=== PATIENT | female | born 1955 | race Caucasian/White ===

== ENCOUNTER 2021-10-30 08:37 | Day surgery (SDC) | payer MEDICARE ==
[~2021-10-30] VITALS: Ht 172.7 cm; Wt 59.3 kg
[2021-10-30] VITALS (12 sets, daily range): BP systolic 110–147; BP diastolic 62–86
[2021-10-30] MEDS ORDERED: LIDOcaine 1% 30ml preserv. free vial IJ STA ×2 (08:39→09:06)
[2021-10-30] MEDS ORDERED: IBUP-24 PO (09:11)
[2021-10-30] MEDS ORDERED: MULT-1085 PO (09:11)
[2021-10-30] MEDS ORDERED: DIAZ2TAB3 PO (09:11)
[2021-10-30] MEDS: albumin 25% 100mL bottle x 1 IV PRN ×2 (10:15→10:22)
== END 2021-10-30 12:30 | disposition home or self-care (01) ==
LOC: SSTAY O 08:37
PROVIDERS: ATTEND Radiology Diagnostic Radiology
DX: K70.31 Alcoholic cirrhosis of liver with ascites (principal); F41.9 Anxiety disorder, unspecified; Z85.3 Personal history of malignant neoplasm of breast; Z88.8 Allergy status to other drugs, medicaments and biological substances; Z88.5 Allergy status to narcotic agent; Z79.899 Other long term (current) drug therapy
CPT/HCPCS: 49083; J3490; P9047

== ENCOUNTER 2021-11-20 07:53 | Day surgery (SDC) | payer MEDICARE ==
[~2021-11-20] VITALS: Ht 172.7 cm; Wt 55.7 kg
[2021-11-20] VITALS (10 sets, daily range): BP systolic 98–130; BP diastolic 52–90
[~2021-11-20 07:53] MED LIST: DIAZ2TAB3 PO; IBUP-24 PO; MULT-1085 PO
[2021-11-20] MEDS: albumin 25% 100mL bottle x 1 IV PRN ×2 (09:35→10:19)
== END 2021-11-20 11:30 | disposition home or self-care (01) ==
LOC: SSTAY O 07:53
PROVIDERS: ATTEND Radiology Vascular & Interventional Radiology
DX: K70.31 Alcoholic cirrhosis of liver with ascites (principal); F41.9 Anxiety disorder, unspecified; Z85.3 Personal history of malignant neoplasm of breast; Z98.890 Other specified postprocedural states; Z72.89 Other problems related to lifestyle; Z88.2 Allergy status to sulfonamides; Z88.8 Allergy status to other drugs, medicaments and biological substances; Z88.5 Allergy status to narcotic agent; Z79.899 Other long term (current) drug therapy
CPT/HCPCS: 49083; P9047

== ENCOUNTER 2021-12-07 06:22 | Day surgery (SDC) | payer MEDICARE ==
[~2021-12-07] VITALS: Ht 172.7 cm; Wt 57.3 kg
[2021-12-07] VITALS (13 sets, daily range): BP systolic 93–123; BP diastolic 53–92
[2021-12-07] MEDS ORDERED: LIDOcaine 1%/PF 5ML 10 MG/ML VIAL IJ ONE (06:50)
[2021-12-07] MEDS ORDERED: BISM262O PO (06:55)
[2021-12-07] MEDS: albumin 25% 100mL bottle x 1 IV PRN ×2 (10:46→10:47)
== END 2021-12-07 11:33 | disposition home or self-care (01) ==
LOC: SSTAY O 06:22
PROVIDERS: ATTEND Radiology Diagnostic Radiology
DX: K70.31 Alcoholic cirrhosis of liver with ascites (principal); F41.9 Anxiety disorder, unspecified; Z85.3 Personal history of malignant neoplasm of breast; Z98.890 Other specified postprocedural states; Z72.89 Other problems related to lifestyle; Z79.899 Other long term (current) drug therapy
CPT/HCPCS: 49083; J3490; P9047

== ENCOUNTER 2021-12-24 06:21 | Day surgery (SDC) | payer MEDICARE ==
[2021-12-24] VITALS (9 sets, daily range): BP systolic 93–124; BP diastolic 49–83
[~2021-12-24] VITALS: Ht 172.7 cm; Wt 52.8 kg
[~2021-12-24 06:21] MED LIST changes: +BISM262O PO
[2021-12-24] MEDS ORDERED: LIDOcaine 1%/PF 5ML 10 MG/ML VIAL SQ ONE (06:40)
[2021-12-24] MEDS ORDERED: SPIR25TA5 PO (07:30)
[2021-12-24] MEDS: albumin 25% 100mL bottle x 1 IV PRN ×2 (09:04→09:40)
== END 2021-12-24 10:55 | disposition home or self-care (01) ==
LOC: SSTAY O 06:21
PROVIDERS: ATTEND Radiology Diagnostic Radiology
DX: K70.31 Alcoholic cirrhosis of liver with ascites (principal); F41.9 Anxiety disorder, unspecified; Z98.890 Other specified postprocedural states; Z85.3 Personal history of malignant neoplasm of breast; Z88.5 Allergy status to narcotic agent; Z88.2 Allergy status to sulfonamides; Z88.8 Allergy status to other drugs, medicaments and biological substances; Z79.899 Other long term (current) drug therapy
CPT/HCPCS: 49083; J3490; P9047

== ENCOUNTER 2022-01-14 08:01 | Day surgery (SDC) | payer MEDICARE ==
[2022-01-14] VITALS (17 sets, daily range): BP systolic 90–120; BP diastolic 49–75
[~2022-01-14] VITALS: Ht 170.2 cm; Wt 53.9 kg
[~2022-01-14 08:01] MED LIST changes: +SPIR25TA5 PO
[2022-01-14] MEDS ORDERED: LIDOcaine 1%/PF 5ML 10 MG/ML VIAL SQ ONE (08:25)
[2022-01-14] MEDS: albumin 25% 100mL bottle x 1 IV PRN ×2 (09:59→10:43)
== END 2022-01-14 11:55 | disposition home or self-care (01) ==
LOC: SSTAY O 08:01
PROVIDERS: ATTEND Radiology Diagnostic Radiology
DX: K70.31 Alcoholic cirrhosis of liver with ascites (principal); F41.9 Anxiety disorder, unspecified; Z85.3 Personal history of malignant neoplasm of breast; Z98.890 Other specified postprocedural states; Z72.89 Other problems related to lifestyle; Z79.899 Other long term (current) drug therapy
CPT/HCPCS: 49083; J3490; P9047

== ENCOUNTER 2022-01-29 07:33 | Day surgery (SDC) | payer MEDICARE ==
[~2022-01-29] VITALS: Ht 171.4 cm; Wt 53.6 kg
[2022-01-29] VITALS (9 sets, daily range): BP systolic 96–118; BP diastolic 48–76
[~2022-01-29 07:33] MED LIST changes: +LIDOcaine 1%/PF 5ML 10 MG/ML VIAL SQ ONE; +albumin 25% 100mL bottle x 1 IV PRN
== END 2022-01-29 10:14 | disposition home or self-care (01) ==
LOC: SSTAY O 07:33
PROVIDERS: ATTEND Preventive Medicine Aerospace Medicine
DX: K70.31 Alcoholic cirrhosis of liver with ascites (principal); F41.9 Anxiety disorder, unspecified; Z85.3 Personal history of malignant neoplasm of breast; Z72.89 Other problems related to lifestyle; Z88.2 Allergy status to sulfonamides; Z88.8 Allergy status to other drugs, medicaments and biological substances; Z79.899 Other long term (current) drug therapy
CPT/HCPCS: 49083; J3490; P9047

== ENCOUNTER 2022-02-18 07:25 | Day surgery (SDC) | payer MEDICARE ==
[~2022-02-18] VITALS: Ht 170.2 cm; Wt 57.7 kg
[2022-02-18] VITALS (12 sets, daily range): BP systolic 90–128; BP diastolic 56–80
[~2022-02-18 07:25] MED LIST changes: -LIDOcaine 1%/PF 5ML 10 MG/ML VIAL SQ ONE; -albumin 25% 100mL bottle x 1 IV PRN
[2022-02-18] MEDS ORDERED: LIDOcaine 1%/PF 5ML 10 MG/ML VIAL IM ONE (08:15)
[2022-02-18] MEDS ORDERED: albumin (human) 25% 100ml IV 100 ML IV ONE (09:30)
[2022-02-18] MEDS ORDERED: albumin 25% 100mL bottle x 1 IV PRN (09:40)
== END 2022-02-18 11:35 | disposition home or self-care (01) ==
LOC: SSTAY O 07:25
PROVIDERS: ATTEND Radiology Vascular & Interventional Radiology
DX: K70.31 Alcoholic cirrhosis of liver with ascites (principal); F41.9 Anxiety disorder, unspecified; Z85.3 Personal history of malignant neoplasm of breast; Z72.89 Other problems related to lifestyle; Z79.899 Other long term (current) drug therapy; Z88.2 Allergy status to sulfonamides; Z88.8 Allergy status to other drugs, medicaments and biological substances
CPT/HCPCS: 49083; J3490; P9047

== ENCOUNTER 2022-03-08 06:49 | Day surgery (SDC) | payer MEDICARE ==
[2022-03-08] VITALS (12 sets, daily range): BP systolic 95–108; BP diastolic 59–100
[~2022-03-08] VITALS: Ht 170.2 cm; Wt 54.5 kg
[2022-03-08] MEDS ORDERED: LIDOcaine 1%/PF 5ML 10 MG/ML VIAL SQ ONE (07:10)
[2022-03-08] MEDS ORDERED: albumin (human) 25% 100ml IV 100 ML IV ONE (09:10)
[2022-03-08] MEDS ORDERED: albumin 25% 100mL bottle x 1 IV PRN (09:50)
== END 2022-03-08 11:05 | disposition home or self-care (01) ==
LOC: SSTAY O 06:49
PROVIDERS: ATTEND Radiology Diagnostic Radiology
DX: K70.31 Alcoholic cirrhosis of liver with ascites (principal); F41.9 Anxiety disorder, unspecified; Z85.3 Personal history of malignant neoplasm of breast; Z72.89 Other problems related to lifestyle; Z79.899 Other long term (current) drug therapy; Z98.890 Other specified postprocedural states
CPT/HCPCS: 49083; J3490; P9047

== ENCOUNTER 2022-04-01 08:42 | Day surgery (SDC) | payer MEDICARE ==
[~2022-04-01] VITALS: Ht 170.2 cm; Wt 49.9 kg
[2022-04-01] VITALS (8 sets, daily range): BP systolic 90–109; BP diastolic 56–75
[~2022-04-01 08:42] MED LIST changes: -BISM262O PO
[2022-04-01] MEDS ORDERED: albumin 25% 100mL bottle x 1 IV PRN (09:05)
[2022-04-01] MEDS ORDERED: LIDOcaine 1%/PF 5ML 10 MG/ML VIAL SQ ONE (09:10)
== END 2022-04-01 11:10 | disposition home or self-care (01) ==
LOC: SSTAY O 08:42
PROVIDERS: ATTEND Radiology Vascular & Interventional Radiology
DX: K70.31 Alcoholic cirrhosis of liver with ascites (principal); F41.9 Anxiety disorder, unspecified; Z85.3 Personal history of malignant neoplasm of breast; Z98.890 Other specified postprocedural states; Z72.89 Other problems related to lifestyle; Z88.2 Allergy status to sulfonamides; Z88.8 Allergy status to other drugs, medicaments and biological substances; Z88.5 Allergy status to narcotic agent
CPT/HCPCS: 49083; J3490; P9047; Z7610; A6258

== ENCOUNTER 2022-04-19 07:17 | Day surgery (SDC) | payer MEDICARE ==
[2022-04-19] VITALS (10 sets, daily range): BP systolic 93–146; BP diastolic 56–72
[~2022-04-19] VITALS: Ht 170.2 cm; Wt 54.1 kg
[2022-04-19] MEDS ORDERED: LIDOcaine 1%/PF 5ML 10 MG/ML VIAL SQ ONE (07:30)
[2022-04-19] MEDS ORDERED: albumin 25% 100mL bottle x 1 IV PRN (07:40)
[2022-04-19] MEDS ORDERED: LIDOcaine 1%/PF 5ML 10 MG/ML VIAL IJ ONE (08:05)
== END 2022-04-19 10:51 | disposition home or self-care (01) ==
LOC: SSTAY O 07:17
PROVIDERS: ATTEND Preventive Medicine Aerospace Medicine
DX: K70.31 Alcoholic cirrhosis of liver with ascites (principal); Z85.3 Personal history of malignant neoplasm of breast; F41.9 Anxiety disorder, unspecified; Z88.2 Allergy status to sulfonamides; Z88.6 Allergy status to analgesic agent; Z88.8 Allergy status to other drugs, medicaments and biological substances; Z72.89 Other problems related to lifestyle; Z79.899 Other long term (current) drug therapy; Z98.890 Other specified postprocedural states
CPT/HCPCS: 49083; J3490; P9047; Z7610; A6258; A6449

== ENCOUNTER 2022-05-16 06:18 | Day surgery (SDC) | payer MEDICARE ==
[~2022-05-16] VITALS: Ht 170.2 cm; Wt 52.3 kg
[2022-05-16] VITALS (9 sets, daily range): BP systolic 97–131; BP diastolic 53–78
[~2022-05-16 06:18] MED LIST changes: -MULT-1085 PO
[2022-05-16] MEDS ORDERED: LIDOcaine 1%/PF 5ML 10 MG/ML VIAL IJ ONE (06:40)
[2022-05-16] MEDS ORDERED: B12 PO (06:42)
[2022-05-16] MEDS ORDERED: MULT-1085 PO (06:43)
[2022-05-16] MEDS ORDERED: albumin 25% 100mL bottle x 1 IV PRN (06:45)
== END 2022-05-16 10:30 | disposition home or self-care (01) ==
LOC: SSTAY O 06:18
PROVIDERS: ATTEND Radiology Diagnostic Radiology
DX: K70.31 Alcoholic cirrhosis of liver with ascites (principal); Z85.3 Personal history of malignant neoplasm of breast; F41.9 Anxiety disorder, unspecified; Z98.890 Other specified postprocedural states; Z88.2 Allergy status to sulfonamides; Z88.6 Allergy status to analgesic agent; Z88.8 Allergy status to other drugs, medicaments and biological substances; Z79.899 Other long term (current) drug therapy
CPT/HCPCS: 49083; J3490; P9047; A6258; A6449

== ENCOUNTER 2023-07-31 06:31 | Day surgery (SDC) | payer MEDICARE ==
[~2023-07-31] VITALS: Ht 170.2 cm; Wt 52.5 kg
[~2023-07-31 06:31] MED LIST changes: +B12 PO; +MULT-1085 PO; +OMEP20CA16 PO
[2023-07-31 06:58] VITALS: BP 124/61; PULSE 88; RESP 15; TEMP 97.9; O2SAT 98
[2023-07-31] MEDS ORDERED: albumin 25% 100mL bottle x 1 IV PRN (07:00)
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
[2023-07-31 07:29] VITALS: RESP 14; O2SAT 95
--- NOTE | 2023-07-31 07:43 | NUR ---
Patient reports BM this morning, She states it was normal looking and no signs of concern. Addendum: 07/31/23 at 0806 by Dannielle VIZCAINO Amended: Links added.
--- NOTE | 2023-07-31 07:44 | NUR ---
Pt reports having pressure to urinate when her abdomen is full of liquid at times. She reports no concerns at this time. Addendum: 07/31/23 at 0806 by Dannielle VIZCAINO Amended: Links added.
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
--- NOTE | 2023-07-31 07:53 | NUR ---
Pt report vertigo. She takes Dramamine at home. Addendum: 07/31/23 at 0806 by Dannielle VIZCAINO Amended: Links added.
== END 2023-07-31 08:30 | disposition home or self-care (01) ==
LOC: SSTAY O 06:31
PROVIDERS: ATTEND Radiology Diagnostic Radiology
DX: R18.8 Other ascites (principal); F41.9 Anxiety disorder, unspecified; Z85.3 Personal history of malignant neoplasm of breast; Z88.4 Allergy status to anesthetic agent
CPT/HCPCS: 76705; A6258; C1729

== ENCOUNTER 2023-08-22 08:43 | Day surgery (SDC) | payer MEDICARE ==
[~2023-08-22] VITALS: Ht 170.2 cm; Wt 56.4 kg
[2023-08-22] VITALS (9 sets, daily range): BP systolic 98–135; BP diastolic 58–68; PULSE 71–90; RESP 16–18; TEMP 97.8; O2SAT 92–96
[~2023-08-22 08:43] MED LIST changes: -B12 PO; -IBUP-24 PO; -SPIR25TA5 PO
[2023-08-22] MEDS ORDERED: albumin 25% 100mL bottle x 1 IV PRN (09:20)
== END 2023-08-22 10:50 | disposition home or self-care (01) ==
LOC: SSTAY O 08:43
PROVIDERS: ATTEND Radiology Vascular & Interventional Radiology
DX: K70.31 Alcoholic cirrhosis of liver with ascites (principal); F41.9 Anxiety disorder, unspecified; D63.8 Anemia in other chronic diseases classified elsewhere; F41.0 Panic disorder [episodic paroxysmal anxiety]; Z85.3 Personal history of malignant neoplasm of breast; Z98.890 Other specified postprocedural states; Z72.89 Other problems related to lifestyle; Z79.899 Other long term (current) drug therapy
CPT/HCPCS: 49083; C1729; P9047; A6258

== ENCOUNTER 2023-10-27 06:35 | Day surgery (SDC) | payer MEDICARE ==
[~2023-10-27] VITALS: Ht 170.2 cm; Wt 57.2 kg
[2023-10-27] VITALS (7 sets, daily range): BP systolic 101–128; BP diastolic 48–71; PULSE 74–87; RESP 14–16; TEMP 98.2; O2SAT 95–97
[~2023-10-27 06:35] MED LIST changes: -DIAZ2TAB3 PO; +FOLI1TAB27 PO; +LACT10SO78 PO; +SPIR25TA5 PO; +thiamine tablet PO
[2023-10-27] MEDS ORDERED: albumin 25% 100mL bottle x 1 IV PRN (07:00)
[2023-10-27] MEDS ORDERED: LACT10SO3 PO (07:04)
[2023-10-27] MEDS ORDERED: THIA100T66 PO (07:04)
[2023-10-27] MEDS ORDERED: FOLI1TAB27 PO (07:04)
[2023-10-27] MEDS ORDERED: SPIR25TA5 PO (07:04)
== END 2023-10-27 09:47 | disposition home or self-care (01) ==
LOC: SSTAY O 06:35
PROVIDERS: ATTEND Radiology Diagnostic Radiology
DX: K70.31 Alcoholic cirrhosis of liver with ascites (principal); F41.0 Panic disorder [episodic paroxysmal anxiety]; D63.8 Anemia in other chronic diseases classified elsewhere; Z72.89 Other problems related to lifestyle; Z98.890 Other specified postprocedural states; Z79.899 Other long term (current) drug therapy; Z85.3 Personal history of malignant neoplasm of breast; Z90.12 Acquired absence of left breast and nipple; Z88.5 Allergy status to narcotic agent; Z88.8 Allergy status to other drugs, medicaments and biological substances; Z88.0 Allergy status to penicillin; Z88.2 Allergy status to sulfonamides
CPT/HCPCS: 49083; C1729; P9047; A6258; A6449

== ENCOUNTER 2023-11-20 06:35 | Day surgery (SDC) | payer MEDICARE ==
[2023-11-20] VITALS (8 sets, daily range): BP systolic 90–115; BP diastolic 43–65; PULSE 73–85; RESP 16–18; TEMP 97.6; O2SAT 96–99
[~2023-11-20] VITALS: Ht 171.4 cm; Wt 46.9 kg
[~2023-11-20 06:35] MED LIST changes: +FURO20TA4 PO; +LACT10SO3 PO; -LACT10SO78 PO; +LEVO-65 PO; +MAGN400T29 PO; +ONDA8TAB13 PO; +PANT40SU2 PO; +SPIR100T PO; -SPIR25TA5 PO; +THIA100T66 PO; -thiamine tablet PO
[2023-11-20] MEDS ORDERED: SPIR100T5 PO (07:02)
[2023-11-20] MEDS ORDERED: PANT40SU2 PO (07:02)
[2023-11-20] MEDS ORDERED: LEVO-65 PO (07:02)
[2023-11-20] MEDS ORDERED: FERR325T29 PO (07:02)
[2023-11-20] MEDS: albumin 25% 100mL bottle x 1 IV PRN (07:45)
== END 2023-11-20 10:15 | disposition home or self-care (01) ==
LOC: SSTAY O 06:35
PROVIDERS: ATTEND Radiology Vascular & Interventional Radiology
DX: K70.31 Alcoholic cirrhosis of liver with ascites (principal); F41.0 Panic disorder [episodic paroxysmal anxiety]; D63.8 Anemia in other chronic diseases classified elsewhere; Z90.12 Acquired absence of left breast and nipple; Z98.890 Other specified postprocedural states; Z79.899 Other long term (current) drug therapy; Z88.0 Allergy status to penicillin; Z88.2 Allergy status to sulfonamides; Z88.4 Allergy status to anesthetic agent; Z88.8 Allergy status to other drugs, medicaments and biological substances
CPT/HCPCS: 49083; C1729; P9047; A6258

== ENCOUNTER 2024-01-09 10:18 | Observation (INO) | payer MEDICARE ==
[~2024-01-09] VITALS: Ht 171.4 cm; Wt 45.5 kg
[~2024-01-09 10:18] MED LIST changes: +FERR325T29 PO; -FURO20TA4 PO; -MAGN400T29 PO; -MULT-1085 PO; -OMEP20CA16 PO; -ONDA8TAB13 PO; -SPIR100T PO; +SPIR100T5 PO
[2024-01-09 10:20] VITALS: TEMP 98.5
[2024-01-09 11:22] LABS: BASOPHILS % (AUTO) 0.9 % (0-1); EOSINOPHILS # (AUTO) 0.1 X10'3 (0-0.9); EOSINOPHILS % (AUTO) 2.9 % (0-6); HEMOGLOBIN 7.1 g/dl (12.0-16.0); LYMPHOCYTES # (AUTO) 0.4 X10'3 (1.1-4.8); LYMPHOCYTES % (AUTO) 10.3 % (21-51); MEAN CORPUSCULAR HEMOGLOBIN 35.8 PG (27.0-31.0); MEAN CORPUSCULAR HGB CONC 35.7 g/dL (33.0-36.5); MEAN CORPUSCULAR VOLUME 100.4 FL (78-98); MEAN PLATELET VOLUME 7.3 FL (7.4-10.4); MONOCYTES # (AUTO) 0.8 X10'3 (0-0.9); MONOCYTES % (AUTO) 19.2 % (2-12); NEUTROPHILS # (AUTO) 2.8 X10'3 (1.8-7.7); NEUTROPHILS % (AUTO) 66.7 % (42-75); PLATELET COUNT 175 X10'3 (140-440); RED BLOOD COUNT 1.98 X10'6 (4.20-5.60); RED CELL DISTRIBUTION WIDTH 16.5 % (11.5-14.5); WHITE BLOOD COUNT 4.2 X10'3 (4.5-11.0)
[2024-01-09 11:25] LABS: HEMATOCRIT 19.9 % (35.0-45.0)
[2024-01-09 11:41] LABS: ALANINE AMINOTRANSFERASE 26 U/L (12-78); ALBUMIN 2.6 G/DL (3.4-5.0); ALKALINE PHOSPHATASE 107 IU/L (46-116); ANION GAP 7 (8-16); ASPARTATE AMINO TRANSFERASE 50 U/L (10-37); BILIRUBIN,TOTAL 8.1 MG/DL (0.1-1.0); BLOOD UREA NITROGEN 20 MG/DL (7-18); BUN/CREATININE RATIO 23.3 (10.0-20.0); CALCIUM 8.2 MG/DL (8.5-10.1); CHLORIDE 99 MMOL/L (99-107); CREATININE 0.86 MG/DL (0.40-0.90); SODIUM 135 MMOL/L (135-145); TOTAL CARBON DIOXIDE 28.9 MMOL/L (24-32); eCRCL 44 ML/MIN; eGFR 65 ML/MIN
[2024-01-09 11:42] LABS: ALBUMIN/GLOBULIN RATIO 0.7 (1.1-1.5); GLUCOSE 108 MG/DL (70-104); TOTAL PROTEIN 6.4 G/DL (6.4-8.2)
[2024-01-09 11:45] LABS: POTASSIUM 2.7 MMOL/L (3.5-5.1)
[2024-01-09 12:10] LABS: ACANTHOCYTES 1+; ANISOCYTOSIS 1+; BURR CELLS 1+; PLATELET ESTIMATE NORMAL; TOTAL CELLS COUNTED 100
[2024-01-09 12:11] LABS: ELLIPTOCYTES FEW; TARGET CELLS FEW
[2024-01-09] MEDS: potassium Cl 20 mEq SR tablet PO STA (14:08)
[2024-01-09] MEDS ORDERED: magnesium 2GM in 50ml NS 50 ML IV PRN (14:25)
[2024-01-09] MEDS ORDERED: magnesium Cl slow-release 64mg tablet PO PRN (14:25)
[2024-01-09] MEDS ORDERED: magnesium 4gm in 100ml NS 100 ML IV PRN (14:25)
[2024-01-09] MEDS: normal saline 1000ml 1,000 ML IV SCH (14:25)
[2024-01-09] MEDS ORDERED: magnesium hydroxide 30ml (MOM) UD suspension PO PRN (14:25)
[2024-01-09] MEDS ORDERED: acetaminophen 325mg tablet PO PRN (14:25)
[2024-01-09] MEDS ORDERED: ondansetron/PF 4mg/2ml inj IV PRN (14:25)
[2024-01-09] MEDS ORDERED: potassium Cl 40MEQ/1/2NS 520ml 520 ML IV PRN (14:25)
[2024-01-09] MEDS ORDERED: mag hydrox/Alum hydrox/simeth 30ml oral suspension PO PRN (14:25)
[2024-01-09] MEDS ORDERED: morphine 2 MG/ML inj. syringe IV PRN ×2 (14:25)
[2024-01-09] MEDS ORDERED: potassium Cl 20 mEq SR tablet PO PRN ×2 (14:25)
[2024-01-09 14:33] LABS: OCCULT BLOOD STOOL NEGATIVE (Neg)
[2024-01-09 15:27] VITALS: BP 109/64; PULSE 73; O2SAT 97
[2024-01-09 15:29] VITALS: RESP 15
[2024-01-09] MEDS ORDERED: docusate sod 100mg capsule PO SCH (20:00)
[2024-01-09] MEDS ORDERED: thiamine 100mg tablet PO SCH (20:00)
[2024-01-09] MEDS ORDERED: K and/or MAG REPLACEMENT MC SCH (20:00)
[2024-01-10] MEDS ORDERED: pantoprazole 40mg Tablet.DR PO SCH (07:30)
[2024-01-10] MEDS ORDERED: folic acid 1mg tablet PO SCH (08:00)
[2024-01-10] MEDS ORDERED: multivitamins, therapeutics tablet PO SCH (08:00)
== END 2024-01-09 15:30 | disposition left against medical advice (07) ==
LOC: ER 10:19 → ED HOLD 14:31
PROVIDERS: ADMIT Family Medicine; ATTEND Family Medicine
DX: D53.9 Nutritional anemia, unspecified (principal); E87.6 Hypokalemia; E88.09 Other disorders of plasma-protein metabolism, not elsewhere classified; E80.7 Disorder of bilirubin metabolism, unspecified; Z88.0 Allergy status to penicillin; K70.30 Alcoholic cirrhosis of liver without ascites; K76.6 Portal hypertension; Z87.11 Personal history of peptic ulcer disease; Z79.899 Other long term (current) drug therapy
CPT/HCPCS: 36415; 80053; 82140; 82272; 83735; 85007; 85025; 86885; 86900; 86901; 86920; 93005; 99284; G0378; J7030